=== PATIENT | female | born 1985 | race Caucasian/White ===

== ENCOUNTER 2018-07-15 10:57 | Emergency (ER) | payer MEDICAID ==
[2018-07-15 11:06] VITALS: BP 147/107
--- NOTE | 2018-07-15 11:25 | ED Physician Documentation ---
PD HPI HEENT - Stated complaint Stated Complaint: RT EAR/THROAT PX/VISION PROBLEM - Chief complaint Chief Complaint: Heent - History obtained from History obtained from: Patient - History of Present Illness Timing - onset: Today Location: Right ear, Throat Associated symptoms: Swollen nodes Similar symptoms before: Diagnosis (History of recurrent right otitis media, with tympanic membrane perforation.) - Additional information Additional information: The patient is a 32-year-old female who presents with pain and drainage from her right ear and swelling in the preauricular region. Symptoms started this morning, with associated sore throat. She denies fever, headache, cough, or shortness of breath. She has history of similar symptoms in the past, with recurrent right otitis media with tympanic membrane perforation. Review of Systems Constitutional: denies: Fever Eyes: denies: Irritation Ears: reports: Ear pain (right ear), Drainage/discharge (right ear) Nose: denies: Congestion Throat: reports: Sore throat Respiratory: denies: Dyspnea, Cough GI: denies: Abdominal Pain, Nausea, Vomiting Skin: denies: Rash Musculoskeletal: denies: Neck pain Neurologic: denies: Headache PD PAST MEDICAL HISTORY - Past Medical History Past Medical History: No Endocrine/Autoimmune: None - Past Surgical History Past Surgical History: No - Present Medications Home Medications: Ambulatory Orders Medication Instructions Recorded Confirmed Azithromycin [Zithromax] 250 mg PO DAILY #6 tablet 07/15/18 Neomycin/Polymyx/Hc Otic Drops 4 drops RIGHTEAR TID #1 bottle 07/15/18 [Cortisporin Ear Susp] - Allergies Allergies/Adverse Reactions: Allergies Allergy/AdvReac Type Severity Reaction Status Date / Time No Known Drug Allergies Allergy Verified 07/15/18 11:06 - Social History Does the pt smoke?: Yes Smoking Status: Current every day smoker Does the pt drink ETOH?: Yes Does the pt have substance abuse?: No - Immunizations Immunizations are current?: Yes PD ED PE NORMAL - Vitals Vital signs reviewed: Yes (initially hypertensive.) - General General: Alert and oriented X 3, Well developed/nourished - HEENT HEENT: Atraumatic, Moist mucous membranes, Pharynx benign, Other (There is purulent debris within the right external ear canal, and dullness of the right tympanic membrane. There is slight swelling and tenderness to palpation in the preauricular region.) - Neck Neck: Supple, no meningeal sign, Other (Mildly enlarged right anterior cervical lymph nodes.) - Cardiac Cardiac: RRR - Respiratory Respiratory: No respiratory distress, Clear bilaterally - Abdomen Abdomen: Soft, Non tender - Derm Derm: No rash - Neuro Neuro: Alert and oriented X 3, No motor deficit, Normal speech Results - Vitals Vitals: Oxygen O2 Source Room air PD MEDICAL DECISION MAKING - ED course Complexity details: considered differential, d/w patient, d/w family ED course: The patient's presentation is most consistent with acute right otitis media and right otitis externa. Her presentation does not suggest meningitis, peritonsillar abscess, or pneumonia. She is being discharged with prescriptions for Zithromax and for Cortisporin Otic suspension. I discussed with her and her family the expected course of illness, the importance of cigarette cessation, antibiotic treatment and outpatient follow-up, as well as potentially worrisome signs or symptoms that should prompt reevaluation in the emergency department. - Sepsis Event Vital Signs: Oxygen O2 Source Room air Departure - Departure Disposition: 01 Home, Self Care Clinical Impression: Right otitis externa Qualifiers: Otitis externa type: unspecified type Chronicity: acute Qualified Code(s): H60.501 - Unspecified acute noninfective otitis externa, right ear Right otitis media Qualifiers: Otitis media type: unspecified Qualified Code(s): H66.91 - Otitis media, unspecified, right ear Condition: Stable Instructions: ED Otitis Media Acute Adult, ED Otitis Externa Follow-Up: Yandy Rojas MD [Physician No Access] - Prescriptions: Azithromycin [Zithromax] 250 mg PO DAILY #6 tablet Neomycin/Polymyx/Hc Otic Drops [Cortisporin Ear Susp] 4 drops RIGHTEAR TID #1 bottle Comments: Take Zithromax daily as prescribed. Instill Cortisporin otic drops in the right ear as prescribed. You can use Tylenol or ibuprofen if needed for fever or discomfort. Follow up with your primary physician within 1-2 weeks. Call to schedule an appointment. Return to the emergency department if you develop increasing pain, increasing facial swelling, or otherwise worsening symptoms. Discharge Date/Time: 07/15/18 11:28
== END 2018-07-15 11:28 | disposition home or self-care (01) ==
LOC: ED 10:57
DX: H60.501 Unspecified acute noninfective otitis externa, right ear (principal); H66.91 Otitis media, unspecified, right ear; F17.200 Nicotine dependence, unspecified, uncomplicated
CPT/HCPCS: 99283

== ENCOUNTER 2018-10-03 09:19 | Emergency (ER) | payer MEDICAID ==
[2018-10-03 09:26] VITALS: BP 136/87
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
[2018-10-03] MEDS: diphenhydrAMINE 25 MG CAPSULE PO STA (10:51)
[2018-10-03] MEDS: DEXAMETHASONE 10 MG/ML VIAL PO STA (10:51)
[2018-10-03] MEDS: CETIRIZINE 10 MG TABLET PO STA (10:51)
== END 2018-10-03 10:54 | disposition home or self-care (01) ==
LOC: ED 09:19
DX: T78.40XA Allergy, unspecified, initial encounter (principal); F17.200 Nicotine dependence, unspecified, uncomplicated
CPT/HCPCS: 99282; A9270

== ENCOUNTER 2021-09-18 12:13 | Outpatient (CLI) | payer MEDICAID | END 2021-09-18 12:14 | disposition critical access hospital (66) | LOC: EMS 12:13 | DX: S01.21XA Laceration without foreign body of nose, initial encounter (principal); Y04.2XXA Assault by strike against or bumped into by another person, initial encounter; Y92.009 Unspecified place in unspecified non-institutional (private) residence as the place of occurrence of the external cause | CPT/HCPCS: A0425; A0429; A0999 ==

== ENCOUNTER 2021-09-18 12:36 | Emergency (ER) | payer MEDICAID ==
[2021-09-18 12:54] VITALS: BP 115/74
[2021-09-18] MEDS ORDERED: HYDROmorphone 1 MG/ML CARPUJECT IM STA ×2 (13:17→14:35)
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
== END 2021-09-18 16:00 | disposition home or self-care (01) ==
LOC: EDUNIT# → ED 12:36
DX: S02.2XXA Fracture of nasal bones, initial encounter for closed fracture (principal); S02.40FA Zygomatic fracture, left side, initial encounter for closed fracture; Y04.2XXA Assault by strike against or bumped into by another person, initial encounter; F17.200 Nicotine dependence, unspecified, uncomplicated
CPT/HCPCS: 70450; 70486; 72125; 96372; 99284; J1170

== ENCOUNTER 2021-09-26 12:21 | Day surgery (SDC) | payer MEDICAID ==
[~2021-09-26 12:21] MED LIST: ATROPINE ABBOJECT 1 MG/10 ML SYRINGE IVP PRN; BACITRACIN ZINC OINT 1 PACKET TOP ONE; CEFAZOLIN SODIUM IN 0.9 % NACL 2 GM/100 ML BAG IV ONE; HYDROmorphone 0.5 MG/0.5 ML SYRINGE IVP PRN; LACTATED RINGERS 1,000 ML IV SCH; LIDOCAINE MPF 2%-EPI 1:200000 20 ML VIAL ONE; METOCLOPRAMIDE 10 MG/2 ML VIAL IVP PRN; MORPHINE 2 MG/ML CARPUJECT IVP PRN; NALOXONE 0.4 MG/ML VIAL IVP PRN; ONDANSETRON 4 MG/2 ML VIAL IVP PRN; OXYMETAZOLINE HCL 100 SPRAYS BOTTLE ONE; SCOPOLAMINE PATCH TOP SCH; ePHEDrine 50 MG/ML VIAL IVP PRN
[2021-09-26 12:39] LABS: HCG UR QUAL NEGATIVE
[2021-09-26] MEDS ORDERED: MIDAZOLAM 2 MG/2 ML VIAL ONE (12:51)
[2021-09-26] MEDS ORDERED: fentaNYL 100 MCG/2 ML VIAL ONE ×2 (12:51→15:03)
[2021-09-26] MEDS ORDERED: LACTATED RINGERS 1,000 ML IV ONE ×2 (12:56→14:51)
--- NOTE | 2021-09-26 13:03 | ANESTHESIA ---
Pre-Anesthesia VS, & Labs - Diagnosis nasal fracture - Procedure closed nasal reduction with stabilization Vital Signs: Temp Pulse Resp BP Pulse Ox 36.5 C 103 H 20 127/85 H 97 09/26/21 12:30 09/26/21 12:30 09/26/21 12:30 09/26/21 12:30 09/26/21 12:30 Height: 5 ft 6 in Weight (kg): 103.4 kg Body Mass Index: 36.8 BMI Classification: Obese - NPO >8 hours - Is Patient ?: No Home Medications and Allergies Active Medications Atropine Sulfate (Atropine Abboject 1 Mg/10 Ml Syringe) 0.5 mg IVP Q5M PRN PRN Reason: Bradycardia Stop: 09/27/21 11:56 Ephedrine Sulfate (Ephedrine 50 Mg/Ml Vial) 10 mg IVP Q5M PRN PRN Reason: HYPOTENSION Stop: 09/27/21 11:56 Fentanyl (Fentanyl 100 Mcg/2 Ml Vial) 25 - 50 mcg IVP Q5M PRN PRN Reason: BREAKTHROUGH PAIN (2nd Choice) Stop: 09/27/21 11:56 Hydromorphone HCl (Hydromorphone 0.5 Mg/0.5 Ml Syringe) 0.2 - 0.6 mg IVP Q5M PRN PRN Reason: PAIN (First Choice) Stop: 09/27/21 11:56 Lactated Ringer's (Lr) 1,000 mls @ 100 mls/hr IV .Q10H JAMAAL Stop: 09/26/21 21:59 Metoclopramide HCl (Metoclopramide 10 Mg/2 Ml Vial) 10 mg IVP Q6HR PRN PRN Reason: N/V not relieved by Zofran Morphine Sulfate (Morphine 2 Mg/Ml Carpuject) 2 - 4 mg IVP Q5M PRN PRN Reason: PAIN (3rd Choice) Stop: 09/27/21 11:56 Naloxone HCl (Naloxone 0.4 Mg/Ml Vial) 0.1 mg IVP Q2M PRN PRN Reason: RESP RATE <8 Stop: 09/27/21 11:56 Ondansetron HCl (Ondansetron 4 Mg/2 Ml Vial) 4 mg IVP ONCE PRN PRN Reason: N/V (First Choice) Stop: 09/27/21 11:56 Scopolamine HBr (Scopolamine Patch) 1 patch TOP Q3D [facility] Allergies/Adverse Reactions: Allergies Allergy/AdvReac Type Severity Reaction Status Date / Time No Known Drug Allergies Allergy Verified 09/18/21 12:54 Anes History & Medical History - Anesthetic History Anesthesia Complications: reports: No previous complications Family history of Anesthesia Complications: Denies Family history of Malignant Hyperthermia: Denies - Medical History Cardiovascular: reports: Murmur Pulmonary: reports: None, Other (smoker) Gastrointestinal: reports: Other (nausea currently) Urinary: reports: None Musculoskeletal: reports: Osteoarthritis Endocrine/Autoimmune: reports: None Skin: reports: Other Smoking Status: Current every day smoker - Surgical History Eyes Ears Nose Throat (EENT): reports: Tonsil/Adenoidectomy Exam General: Alert, Oriented x3, Cooperative Dental: Other (multiple broken and chipped teeth) Mouth Openin Fingerbreadth Neck Mobility: Normal Mallampati classification: III Thyromental Distance: 4-6 cm Respiratory: Lungs clear Cardiovascular: Regular rate Abdomen: Normal bowel sounds Plan Anesthesia Type: General Consent for Procedure(s) Verified and Reviewed: Yes Code Status: Attempt Resuscitation ASA classification: 2-Mild systemic disease Is this case an emergency?: No
[2021-09-26] MEDS ORDERED: SCOPOLAMINE PATCH TOP ONE (13:05)
[2021-09-26] MEDS ORDERED: ONDANSETRON 4 MG/2 ML VIAL ONE (13:05)
[2021-09-26] MEDS ORDERED: LIDOCAINE MPF 2%-EPI 1:200000 20 ML VIAL SUBQ ONE (14:33)
[2021-09-26] MEDS ORDERED: BACITRACIN ZINC OINT 14 GM TOP ONE (14:34)
[2021-09-26] MEDS ORDERED: OXYMETAZOLINE HCL 100 SPRAYS BOTTLE NAS ONE (14:35)
[2021-09-26] MEDS ORDERED: PROPOFOL 200 MG/20 ML VIAL IVP ONE (14:47)
[2021-09-26] MEDS: fentaNYL 100 MCG/2 ML VIAL IVP PRN ×4 (14:55→15:10)
[2021-09-26] MEDS ORDERED: oxyCODONE 10 MG/0.5 ML SYRINGE PO PRN (15:11)
[2021-09-26] MEDS ORDERED: ONDANSETRON 4 MG/2 ML VIAL IVP PRN (15:11)
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
[2021-09-26] MEDS ORDERED: HYDROmorphone 1 MG/ML CARPUJECT IVP PRN (15:18)
[2021-09-26] MEDS ORDERED: HYDROmorphone 1 MG/ML CARPUJECT ONE (15:24)
[2021-09-26] MEDS ORDERED: KETOROLAC 30 MG/ML VIAL IVP PRN (15:29)
[2021-09-26] MEDS ORDERED: oxyCODONE 5 MG TABLET ONE (15:50)
--- NOTE | 2021-09-26 15:53 | ANESTHESIA POST OP EVALUATION ---
Anesthesia Post Eval - Post Anesthesia Eval Vitals: Last Vital Signs Temp 36.8 C 09/26/21 15:37 Pulse 75 09/26/21 15:37 Resp 16 09/26/21 15:37 BP 142/95 H 09/26/21 15:37 Pulse Ox 98 09/26/21 15:37 CV Function Including HR & BP: Stable Pain Control: Satisfactory Nausea & Vomiting: Negative Mental Status: Baseline Respiratory Status: Airway Patent Hydration Status: Satisfactory Anesthesia Complications: None
[2021-09-26 15:58] VITALS: BP 140/84
[2021-09-26] MEDS ORDERED: IBUPROFEN 800 MG TABLET PO SCH (16:00)
== END 2021-09-26 12:22 | disposition home or self-care (01) ==
LOC: SDS 12:21
PROVIDERS: ATTEND Dentist Oral and Maxillofacial Surgery
DX: S02.2XXA Fracture of nasal bones, initial encounter for closed fracture (principal); F17.210 Nicotine dependence, cigarettes, uncomplicated
CPT/HCPCS: 21320; 81025; A9270; J0690; J1170; J3490; J7120

== ENCOUNTER 2022-03-04 11:20 | Emergency (ER) | payer MEDICAID ==
[2022-03-04] MEDS ORDERED: HYDROmorphone 1 MG/ML CARPUJECT IVP STA (12:00)
--- NOTE | 2022-03-04 12:03 | ED Physician Documentation ---
History of Present Illness - Stated complaint Stated Complaint: ABD PX,FEMALE - Chief complaint Chief Complaint: Abd Pain - Additonal information Additional information: 36-year-old female presents emergency department for evaluation of vaginal bleeding and cramping in the first trimester . G4, . LMP 01-04 Reports she began having light spotting about 4 days ago though over the last 24 hours she is progressed to heavy bleeding and passing large clots. She believes that she passed what she thinks is products of conception earlier this morning. Reports that she woke up with her bedding and legs saturated in blood. Patient has not been able to establish with an OB. Review of Systems Constitutional: denies: Fever, Chills Eyes: reports: Reviewed and negative Nose: reports: Reviewed and negative Throat: reports: Reviewed and negative Cardiac: reports: Reviewed and negative Respiratory: reports: Reviewed and negative GI: reports: Abdominal Pain. denies: Nausea, Vomiting, Constipation, Diarrhea : reports: LMP (12/17/21), Vaginal bleeding Skin: reports: Reviewed and negative Musculoskeletal: reports: Reviewed and negative PD PAST MEDICAL HISTORY - Past Medical History Cardiovascular: Murmur Respiratory: None, Other (smoker) Endocrine/Autoimmune: None GI: Other (nausea currently) : None HEENT: Chronic hearing loss Psych: Claustrophobia, Obsessive compulsive disorder Musculoskeletal: Osteoarthritis Derm: Other - Past Surgical History Past Surgical History: Yes HEENT: Tonsil/Adenoidectomy - Present Medications Home Medications: Ambulatory Orders Medication Instructions Recorded Confirmed HYDROcod/ACETAM 5/325 [[place] 5/325] 1 tablet PO BID PRN #10 tablet 09/18/21 09/26/21 - Allergies Allergies/Adverse Reactions: Allergies Allergy/AdvReac Type Severity Reaction Status Date / Time No Known Drug Allergies Allergy Verified 03/04/22 11:40 - Social History Does the pt smoke?: Yes Smoking Status: Current every day smoker Does the pt drink ETOH?: Yes Does the pt have substance abuse?: No - Immunizations Immunizations are current?: Yes PD ED PE NORMAL - General General: Alert and oriented X 3, No acute distress, Well developed/nourished - HEENT HEENT: Atraumatic - Neck Neck: Supple, no meningeal sign, No adenopathy - Cardiac Cardiac: RRR - Respiratory Respiratory: No respiratory distress, Clear bilaterally - Abdomen Abdomen: Normal bowel sounds, Soft. No: Non tender (mild lowr midline spurpapubic ttp) - Back Back: No CVA TTP, No spinal TTP - Derm Derm: Normal color, Warm and dry - Extremities Extremities: No deformity, No tenderness to palpate, Normal ROM s pain - Neuro Neuro: Alert and oriented X 3, extension forester 2-12 intact Eye Opening: Spontaneous Motor: Obeys Commands Verbal: Oriented GCS Score: 15 Results - Vitals Vitals: Vital Signs - 24 hr 03/04/22 03/04/22 03/04/22 11:35 11:48 14:12 Temperature 36.7 C 36.6 C Heart Rate 104 H 82 96 Respiratory 18 19 16 Rate Blood Pressure 137/91 H 119/73 133/86 H O2 Saturation 98 100 97 Oxygen O2 Source Room air - Labs Labs: Laboratory Tests 03/04/22 03/04/22 03/04/22 12:00 12:00 12:00 WBC 10.4 RBC 4.93 Hgb 14.6 Hct 43.7 MCV 88.6 MCH 29.6 MCHC 33.4 RDW 12.9 Plt Count 432 MPV 8.6 Neut # (Auto) 6.4 Lymph # (Auto) 2.8 [place] # (Auto) 0.9 Eos # (Auto) 0.2 Baso # (Auto) 0.0 Absolute Nucleated RBC 0.00 Nucleated RBC % 0.0 Sodium 135 Potassium 3.9 Chloride 102 Carbon Dioxide 24 Anion Gap 9.0 BUN 10 Creatinine 0.6 Estimated GFR (MDRD) 112 Glucose 99 Calcium 8.9 Total Bilirubin 0.6 AST 16 ALT 20 Alkaline Phosphatase 78 Total Protein 6.8 Albumin 3.6 Globulin 3.2 Albumin/Globulin Ratio 1.1 Lipase 34 HCG, Quant 284.55 Urine Color Urine Clarity Urine pH Ur Specific [place] Urine Protein Urine Glucose (UA) Urine Ketones Urine Occult Blood Urine Nitrite Urine Bilirubin Urine Urobilinogen Ur Leukocyte Esterase Urine RBC Urine WBC Ur Squamous Epith Cells Urine Bacteria Ur Microscopic Review Urine Culture Comments Blood Type 03/04/22 03/04/22 12:00 12:00 WBC RBC Hgb Hct MCV MCH MCHC RDW Plt Count MPV Neut # (Auto) Lymph # (Auto) [place] # (Auto) Eos # (Auto) Baso # (Auto) Absolute Nucleated RBC Nucleated RBC % Sodium Potassium Chloride Carbon Dioxide Anion Gap BUN Creatinine Estimated GFR (MDRD) Glucose Calcium Total Bilirubin AST ALT Alkaline Phosphatase Total Protein Albumin Globulin Albumin/Globulin Ratio Lipase HCG, Quant Urine Color BROWN Urine Clarity CLOUDY Urine pH 6.0 Ur Specific [place] >=1.030 H Urine Protein TRACE Urine Glucose (UA) NEGATIVE Urine Ketones NEGATIVE Urine Occult Blood LARGE H Urine Nitrite NEGATIVE Urine Bilirubin NEGATIVE Urine Urobilinogen 1 (NORMAL) Ur Leukocyte Esterase NEGATIVE Urine RBC TNTC H Urine WBC 0-3 Ur Squamous Epith Cells FEW Squamous Urine Bacteria Few Ur Microscopic Review INDICATED Urine Culture Comments NOT INDICATED Blood Type B NEGATIVE - Rads (name of study) OB us Radiology: Final report received (No viable IUP seen. Blood clots within the uterus. no secondary findings to suggest extopic) PD MEDICAL DECISION MAKING - ED course Complexity details: reviewed results, re-evaluated patient, considered differential, d/w patient ED course: 36-year-old female presents emergency department for evaluation of vaginal bleeding in the first trimester . LMP the very beginning of December. Today screening labs show no acute worrisome findings. Her beta hCG however is only 240. This is well below the discriminatory threshold for findings of IUP on ultrasound. eeg technologist informs me that no IUP was seen simply blood clots within the uterus. However there are no secondary findings to suggest ectopic and patient has no lateralizing pain. I suspect that she is having a miscarriage. She is Rh- and is administered 300 of RhoGAM here in the emergency department. She is advised to have her hCG redrawn in 48 to 72 hours. If rising she would need repeat ultrasound to determine the location of though again ectopic is not suspected at this time. We did discuss expectant management of what appears likely to be a miscarriage. Emergent return precautions were discussed for worsening symptoms severe bleeding syncope, fevers and tachycardia. Departure - Departure Disposition: Home, Self Care Clinical Impression: Vaginal bleeding in patient after first trimester Condition: Stable Record reviewed to determine appropriate education?: Yes Instructions: ED Miscarriage Incom Comments: Mary farshad are seen today in the emergency department for vaginal bleeding in the first trimester . Your screening labs do not show any worrisome findings however you are Rh-. Therefore we are administering you RhoGAM today. Your hCG level was 240 today. As we discussed at the bedside this is well below the threshold for which we are typically able to see findings of an intrauterine . The ultrasound did not show findings of gestational sac or intrauterine . It is likely that with the amount of vaginal bleeding you have that you are having a miscarriage. Your labs should be redrawn in 48 to 72 hours. If your hCG level is rising then further evaluation for the location of the should be considered. On however in general with a miscarriage you can expect that you will have some heavier than normal vaginal bleeding mostly resembling a menstrual cycle. Most bleeding should begin to resolve after 5 to 7 days. If at any point you develop fevers, have suddenly severe or different pain, any fainting episodes or racing heart then you should return to the ER for a second evaluation. Discharge Date/Time: 03/04/22 14:13
[2022-03-04 12:09] LABS: BASOPHILS % (AUTO) 0.4 %; EOSINOPHILS # (AUTO) 0.2 10^3/uL (0.0-0.7); EOSINOPHILS % (AUTO) 2.1 %; HCT - HEMATOCRIT 43.7 % (37.0-47.0); HGB - HEMOGLOBIN 14.6 g/dL (12.0-16.0); LYMPHOCYTES # (AUTO) 2.8 10^3/uL (1.5-3.5); LYMPHOCYTES % (AUTO) 27.2 %; MEAN CORPUSCULAR HEMOGLOBIN 29.6 pg (27.0-31.0); MEAN CORPUSCULAR HGB CONC 33.4 g/dL (32.0-36.0); MEAN CORPUSCULAR VOLUME 88.6 fL (81.0-99.0); MEAN PLATELET VOLUME 8.6 fL (7.9-10.8); MONOCYTES # (AUTO) 0.9 10^3/uL (0.0-1.0); MONOCYTES % (AUTO) 8.3 %; NEUTROPHILS # (AUTO) 6.4 10^3/uL (1.5-6.6); NEUTROPHILS % (AUTO) 61.7 %; PLT - PLATELET COUNT 432 10^3/uL (130-450); RED BLOOD COUNT 4.93 10^6/uL (4.20-5.40); RED CELL DISTRIBUTION WIDTH 12.9 % (12.0-15.0); WHITE BLOOD COUNT 10.4 x10^3/uL (4.8-10.8)
[2022-03-04 12:10] LABS: GLUCOSE, URINE (UA) NEGATIVE (NEGATIVE); KETONES,URINE (UA) NEGATIVE (NEGATIVE); LEUKOCYTE ESTERASE, URINE NEGATIVE (NEGATIVE); NITRITE,URINE NEGATIVE (NEGATIVE); OCCULT BLOOD,URINE LARGE (NEGATIVE); PROTEIN,URINE TRACE mg/dL (NEGATIVE); UROBILINOGEN,URINE 1 (NORMAL) E.U./dL (NORMAL)
[2022-03-04 12:16] LABS: BILIRUBIN,URINE NEGATIVE (NEGATIVE); CLARITY,URINE CLOUDY (CLEAR); ICTOTEST,URINE NEGATIVE
[2022-03-04 12:28] LABS: ALBUMIN 3.6 g/dL (3.2-5.5); ALBUMIN/GLOBULIN RATIO 1.1 (1.0-2.2); BILIRUBIN,TOTAL 0.6 mg/dL (0.2-1.0); CALCIUM 8.9 mg/dL (8.5-10.3); CREATININE 0.6 mg/dL (0.4-1.0); POTASSIUM 3.9 mmol/L (3.5-5.0); TOTAL PROTEIN 6.8 g/dL (6.7-8.2)
[2022-03-04 12:50] LABS: BACTERIA,URINE Few /HPF (None Seen); RBC,URINE TNTC /HPF (0-5); SQUAMOUS EPITHELIAL CELL,UR FEW Squamous (<= Few); WBC,URINE 0-3 /HPF (0-5)
[2022-03-04] MEDS ORDERED: RHO(D) IMMUNE GLOBULIN 300 MCG SYRINGE IM STA (13:43)
--- NOTE | 2022-03-04 14:11 | Ultrasound Report ---
PROCEDURE: OB First Trimester w/TV INDICATIONS: vaginal bleeding; 1st trimester OUTSIDE/PRIOR DATING DATA: Last menstrual period (LMP): 12/17/2021. LMP-based estimated date of delivery (LORENZO): 09/23/2022. First dating scan: 03/04/2022. Estimated date of delivery (LORENZO) from first dating scan: Not applicable. TECHNIQUE: Real-time scanning was performed of the fetus and maternal pelvic organs, with image documentation. Endovaginal scanning was also performed to better visualize the fetus and maternal ovaries. COMPARISON: None. FINDINGS: No gestational sac or other evidence of intrauterine gestation. There is no adnexal mass to suggest an ectopic . Corpus luteum cyst on the right noted. Otherwise normal appearance of both ovaries. No free pelvic fluid. IMPRESSION: No sonographic evidence of intrauterine at this time. Findings may represent completed abor tion or sonographically occult early . Continued clinical follow-up including serial hCG whit surement and perhaps repeat ultrasound recommended. Reviewed by: Remberto Holland MD on 03/04/2022 2:09 PM PDT Approved by: Remberto Holland MD on 03/04/2022 2:09 PM PDT Station ID: [id number]
[2022-03-04 14:13] VITALS: BP 133/86
== END 2022-03-04 14:13 | disposition home or self-care (01) ==
LOC: ED 11:20
DX: O20.9 Hemorrhage in early pregnancy, unspecified (principal); Z3A.00 Weeks of gestation of pregnancy not specified; O99.331 Smoking (tobacco) complicating pregnancy, first trimester; F17.200 Nicotine dependence, unspecified, uncomplicated
CPT/HCPCS: 36415; 76801; 76817; 80053; 81001; 83690; 84702; 85025; 86900; 86901; 96372; 96374; 99284; J1170; 81003; 87086